=== PATIENT | female | born 1995 | race Two or more races ===

== ENCOUNTER 2017-06-09 12:45 | Observation (INO) | payer MEDICAID ==
[2017-06-09] MEDS ORDERED: PREN-96 PO (15:56)
== END 2017-06-09 15:00 | disposition home or self-care (01) | DRG 566 ==
LOC: LDRP 12:45
PROVIDERS: ADMIT Specialist; ATTEND Specialist
DX: O99.613 Diseases of the digestive system complicating pregnancy, third trimester (principal); K80.20 Calculus of gallbladder without cholecystitis without obstruction; Z3A.29 29 weeks gestation of pregnancy
CPT/HCPCS: 59025; 76705; 81002; G0378

== ENCOUNTER 2019-04-15 14:48 | Emergency (ER) | payer MEDICAID ==
[~2019-04-15] VITALS: Ht 157.5 cm; Wt 61.7 kg
[~2019-04-15 14:48] MED LIST: PREN-96 PO
[2019-04-15 15:20] LABS: Urine Bacteria NONE SEEN /hpf (None Seen); Urine Blood Negative /uL (Negative); Urine Mucus FEW (None Seen); Urine Specific Gravity 1.015 (1.001-1.035); Urine WBC 5 /hpf (0 - 5)
[2019-04-15 16:57] VITALS: BP 117/80
[2019-04-15 17:34] LABS: Basophils # (auto) 0 uL; Basophils % (auto) 0.4 % (0.0-2.0); Eosinophils # (auto) 0 uL; Eosinophils % (auto) 0.4 % (0.0-7.0); Hematocrit 34.3 % (36.0-46.0); Hemoglobin 12.1 g/dL (12.2-16.2); Lymphocytes # (auto) 1.4 uL; Lymphocytes % (auto) 14.9 % (10.0-50.0); Mean Corpuscular Hemoglobin 29.5 pg (28.0-32.0); Mean Corpuscular Hgb Conc. 35.2 g/dL (32.0-36.0); Mean Corpuscular Volume 83.8 fL (80.0-100.0); Monocytes # (auto) 0.3 uL; Monocytes % (auto) 3.2 % (0.0-12.0); Neutrophils # (auto) 7.6 uL; Neutrophils % (auto) 81.1 % (37.0-80.0); Platelet Count (auto) 251 10^3/uL (140-450); Red Cell Distribution Width 13.8 % (11.8-14.3); White Blood Cell 9.4 10^3/uL (4.4-10.8)
== END 2019-04-15 19:10 | disposition home or self-care (01) ==
LOC: ER 14:51
DX: O23.41 Unspecified infection of urinary tract in pregnancy, first trimester (principal); O9A.211 Injury, poisoning and certain other consequences of external causes complicating pregnancy, first trimester; S30.1XXA Contusion of abdominal wall, initial encounter; Z79.899 Other long term (current) drug therapy; Z3A.11 11 weeks gestation of pregnancy; W22.8XXA Striking against or struck by other objects, initial encounter; Y93.89 Activity, other specified; Y99.8 Other external cause status; Y92.89 Other specified places as the place of occurrence of the external cause
CPT/HCPCS: 36415; 76801; 81001; 84702; 85025